=== PATIENT | female | born 1980 | race Two or more races ===

== ENCOUNTER → 2019-03-25 | Outpatient (CLI) | payer OTHER, SELFPAY ==
[2019-03-26 15:28] LABS: Chlamydia Trachomatis by PCR Negative (Negative); Neisserai gonorrhoeae by PCR Negative (Negative); Probe Check PASS; Sample Adequacy Control PASS; Specimen Processing Control PASS
== END | disposition home or self-care (01) ==
LOC: LABSPEC 03-26 08:58
PROVIDERS: Visit Provider Obstetrics & Gynecology
DX: Z11.3 Encounter for screening for infections with a predominantly sexual mode of transmission (principal)
CPT/HCPCS: 87491; 87591

== ENCOUNTER → 2022-05-08 | Outpatient (CLI) | payer OTHER, SELFPAY ==
[2022-05-08 16:32] LABS: Follicle Stimulating Hormone 4.8 mIU/mL; Luteinizing Hormone 7.2 mIU/mL; Prolactin 4.5 ng/mL; Thyroid Stim Hormone (TSH) 4.54 uIU/mL (0.358-3.74)
[2022-05-10 10:48] LABS: Free T3 2.2 pg/mL (2.18-3.98); T4 Free Direct 0.83 ng/dL (0.76-1.46)
[2022-05-18 16:36] LABS: HPV APTIMA, High Risk Negative (Negative)
== END | disposition home or self-care (01) ==
LOC: LABSPEC 14:30
PROVIDERS: Visit Provider Student in an Organized Health Care Education/Training Program
DX: N93.9 Abnormal uterine and vaginal bleeding, unspecified (principal)
CPT/HCPCS: 36415; 82670; 83001; 83002; 84146; 84439; 84443; 84481; 87624; 88175; G0145